=== PATIENT | male | born 1985 | race Caucasian/White ===

== ENCOUNTER 2019-10-24 16:01 | Outpatient (CLI) | payer OTHER, SELFPAY ==
--- NOTE | ~2019-10-24 | XR_ITS ---
EXAMINATION: XR chest 2V EXAM DATE: 10/24/2019 16:26 INDICATION: Atypical right-sided chest pain, mid back pain. TECHNIQUE: Frontal and lateral projections of the chest obtained and reviewed. Comparison is made to prior examination from 10/07/2017. FINDINGS: The lungs are clear. There are no pleural effusions. The cardiomediastinal silhouette is within normal limits. There is no pneumothorax suspected. The bones and soft tissues are unremarkab le. IMPRESSION: Normal chest x-ray exam. Reviewed, dictated and finalized at location B. IMPRESSION: Normal chest x-ray exam.
== END 2019-10-24 16:02 | disposition home or self-care (01) ==
PROVIDERS: PCP Family Medicine; Visit Provider Family Medicine
DX: R07.89 Other chest pain (principal)
CPT/HCPCS: 71046

== ENCOUNTER 2020-04-05 12:36 | Emergency (ER) | payer OTHER, SELFPAY ==
--- NOTE | ~2020-04-05 | XR_ITS ---
EXAMINATION: XR chest 2V DATE: 04/05/2020 13:04 INDICATION: Chest pain. TECHNIQUE: Frontal and lateral views of the chest were obtained on 3 radiographs. COMPARISON: Chest 2 views 10/24/2019 FINDINGS: A calcified left lung nodule and calcified left hilar lymph nodes are consistent with old g ranulomatous disease. No pleural effusion or pneumothorax. The heart size is normal. IMPRESSION: 1. No acute cardiopulmonary disease. Reviewed, dictated and finalized at location A. E RIDING COACH OR INSTRUCTOR
--- NOTE | 2020-04-05 12:49 | ED.CHESTPAIN ---
HPI - Chest Pain General Chief Complaint: Chest Pain Stated Complaint: chest pain Time Seen by Provider: 04/05/20 12:49 Source: patient Mode of arrival: ambulatory Limitations: no limitations History of Present Illness HPI narrative: Phu Hooper is a 35-year-old male with a prior medical history of anxiety [facility] of chest pain that he says he has had his intermittent periods of chest wall pain midsternal for the past 1 to 2 months. His he also has occasional pain across the upper part of his back and left shoulder He has no history of cardiac condition, no high blood pressure, no diagnosed high cholesterol, is not diabetic Patient smokes cigarettes up to 1 pack a day, denies use of any drugs Related Data Allergies Allergy/AdvReac Type Severity Reaction Status Date / Time Penicillins Allergy Unknown Unknown Verified 04/05/20 14:22 Review of Systems Review of Systems: Narrative: CONSTITUTIONAL: Denies fever, chills, sweats. EYES: Denies visual changes, redness, discharge. ENT: Denies rhinorrhea, congestion, sore throat, otalgia. CARDIOVASCULAR: Denies chest pain, palpitations, edema. Midsternal chest pain RESPIRATORY: Denies dyspnea, wheezing, cough GASTROINTESTINAL: Denies abdominal pain, nausea, vomiting, diarrhea. GENITOURINARY: Denies dysuria, hematuria, abnormal discharge SKIN: Denies rash or itching. NEUROLOGIC: Denies numbness, or focal weakness. PSYCHIATRIC: Denies anxiety or depression. PMFSH Past Medical History Medical History Anxiety Social History Social History (Updated 04/05/20 @ 12:52 by eTrrie Lund CNP) Smoking packs per day: 1 Smoking cigarettes per day: 20.0 Smoking status: Current every day smoker Alcohol intake: current Substance use: never Gender identity (if verbalized by the patient): Male Comments At time of signature, I agree with nursing past medical, surgical, social and family history. There is no relevant family history pertinent to the presenting complaint. Exam Narrative: Exam Narrative: GENERAL: This is a well-nourished, well-developed patient, in mild distress. Very anxious HEAD: normocephalic, atraumatic. EYES: Sclera clear/white. Vision is grossly intact. EARS: External ears normal, . Hearing grossly intact. NOSE: External nose normal without nasal discharge, nares without redness, no rhinorrhea. THROAT: Mucous membranes moist, posterior pharynx NECK: Neck supple, CARDIOVASCULAR: Tachycardia rate and rhythm without murmurs, gallops, or rubs. Complaining of chest tightness that is resolved in the 15 minutes he has been here RESPIRATORY: Clear to auscultation. Breath sounds equal bilaterally. No wheezes, rales, or rhonchi. GASTROINTESTINAL: Abdomen soft, non-tender, SKIN: warm, intact with no suspicious lesions or rash, good texture and turgor. NEURO: awake, alert, and oriented to person, place and time. There were no obvious focal neurologic abnormalities. Steady gait EXTREMITIES: Normal range of motion. BACK: Nontender without deformity Course Course Emergency Course: Patient came into the office safely was having a hard attack-complaining of midsternal chest pressure but states if he had a rated pain be 3-4. It has been intermittent for the last 1 to 2 months and has not PCP appointment 1 hour but states he cannot wait that long Patient EKG shows he is tachycardic identifies some abnormal rhythm by its interpretation seems to have an underlying normal sinus rhythm heart rate is 100 Blood sugar is 122 Chest x-ray done-no acute cardiopulmonary disease, heart size is normal Given ASA Spoke to PCP office and provider that was going to see patient-free go to ER to get blood work done including a troponin; this information relayed to patient His initial blood pressure on presentation was 158/106 but will be rechecked before discharge as patient seems to be extremely anxiou
[2020-04-05 12:54] VITALS: BP 158/106; PULSE 115; RESP 20; TEMP 36.8; O2SAT 98
[2020-04-05 12:54] LABS: Glucose Point of Care 122 (65-105)
--- NOTE | 2020-04-05 12:55 | ECG_ITS ---
Measurements Intervals [place] Rate: 100 P: 47 [place]: 126 QRS: 33 QRSD: 107 T: 42 QT: 334 QTc: 431 Interpretive Statements SINUS TACHYCARDIA INCOMPLETE RIGHT BUNDLE BRANCH BLOCK BASELINE ARTIFACT- III BORDERLINE ECG Electronically Signed On 04-05-2020 13:19:11 WELLNESS DIRECTOR by Jean Carlos Romano D.O.
[2020-04-05] MEDS: ASPIRIN 81 MG CHEWABLE TABLET 324 MG PO (13:13)
== END 2020-04-05 13:29 | disposition short-term general hospital (02) ==
PROVIDERS: Emergency Provider Nurse Practitioner; PCP Family Medicine
DX: R07.89 Other chest pain (principal); F17.210 Nicotine dependence, cigarettes, uncomplicated; I45.10 Unspecified right bundle-branch block
CPT/HCPCS: 71046; 82948; 93005; 99213; A9270; G0463

== ENCOUNTER 2020-04-05 14:10 | Emergency (ER) | payer OTHER, SELFPAY ==
--- NOTE | ~2020-04-05 | XR_ITS ---
EXAMINATION: XR chest 2V DATE: 04/05/2020 14:38 INDICATION: Chest pain. TECHNIQUE: Frontal and lateral views of the chest were obtained. COMPARISON: Chest 2 views at 13:00 FINDINGS: A calcified left lung nodule and calcified left hilar lymph nodes are consistent with old g ranulomatous disease. No pleural effusion or pneumothorax. The heart size is normal. IMPRESSION: 1. No acute cardiopulmonary disease. Reviewed, dictated and finalized at location A. RNATIONAL FREIGHT FORWARDER
--- NOTE | 2020-04-05 14:18 | ECG_ITS ---
Measurements Intervals [place] Rate: 90 P: 62 ME: 143 QRS: 50 QRSD: 90 T: 27 QT: 322 QTc: 394 Interpretive Statements SINUS RHYTHM INCOMPLETE RIGHT BUNDLE BRANCH BLOCK BASELINE ARTIFACT- I, III, AVR, AVL, AVF, V1-V6 BORDERLINE ECG Electronically Signed On 04-05-2020 15:10:23 GAS OPERATIONS ANALYST by Jean Carlos Romano D.O.
[2020-04-05 14:19] VITALS: BP 159/107; PULSE 99; RESP 12; TEMP 36.6; O2SAT 99
[2020-04-05 14:22] VITALS: PULSE 88
[2020-04-05 14:36] LABS: Basophils Absolute Auto 0.1 K/mm3 (0.0-0.1); Basophils Percent Auto 0.4 % (0.2-1.2); Eosinophils Percent Auto 0.2 % (0-4.4); Hematocrit 46.8 % (42.0-52.0); Hemoglobin 16.1 g/dL (14.0-18.0); Immature Granulocyte Absolute 0.06 K/mm3 (0.00-0.031); Immature Granulocyte Percent A 0.4 % (0-0.5); Lymphocytes Absolute Auto 2.17 K/mm3 (0.9-3.2); Lymphocytes Percent Auto 15.4 % (18.3-44.2); Mean Corpuscular HGB Conc 34.4 g/dl (32-36); Mean Corpuscular Hemoglobin 29.9 pg (26-34); Mean Corpuscular Volume 86.8 fl (80-100); Mean Platelet Volume 11.2 fl (7.4-10.4); Monocytes Absolute Auto 0.9 K/mm3 (0.1-0.6); Monocytes Percent Auto 6.2 % (2.6-8.5); Neutrophils Absolute Auto 10.9 K/mm3 (1.3-6.7); Neutrophils Percent Auto 77.4 % (45.5-73.1); Platelet Count Result 239 k/mm3 (150-375); Red Blood Count 5.39 M/mm3 (4.6-6.20); Red Cell Distribution Width 12.8 % (11.5-14.5); White Blood Count 14.1 K/mm3 (4.5-10.0)
[2020-04-05 14:46] LABS: Partial Thromboplastin Time 31.5 SECONDS (22.3-36.8)
[2020-04-05 14:50] LABS: Anion Gap 8 mmol/L (8-16); Blood Urea Nitrogen 12 mg/dL (9-20); Calcium 9.4 mg/dL (8.4-10.2); Carbon Dioxide 28 mmol/L (22-30); Chloride 103 mmol/L (98-107); Estimated CRCL calculation 107 ml/min; Estimated Glomerular Filt Rate > 60; Glucose 108 mg/dL (75-110); Potassium 3.8 mmol/L (3.4-5.0); Sodium 139 mmol/L (137-145)
[2020-04-05 15:02] LABS: Troponin I < 0.012 ng/mL (0.000-0.034)
[2020-04-05] MEDS: KETOROLAC 30 MG/ML VIAL (*BKC) IV PUSH (15:30)
[2020-04-05 15:54] VITALS: BP 152/83; PULSE 78; RESP 18; O2SAT 98
--- NOTE | 2020-04-05 16:16 | ED.CHESTPAIN ---
HPI - Chest Pain General Chief Complaint: Chest Pain Stated Complaint: chest pain Time Seen by Provider: 04/05/20 14:21 History of Present Illness HPI narrative: Patient is a 35-year-old male who presents ER with multiple complaints. Patient reports that he has been having some back and neck pain for the last 2 months. It is bilateral and occasionally goes into her shoulders. No numbness or tingling to the extremities. Unknown aggravating or alleviating factors. Patient also reports that he has been experiencing sinus congestion with productive cough in the mornings. No fevers or chills. Is associated with him having some tinnitus in his ear a couple days ago. He is also been having intermittent dizziness that is rotational in nature associated with being clammy and flushed. Has never been diagnosed with vertigo. Has not taken any motion sickness medication. Has not taking medication for sinuses. With all this he is also started developing some upper chest discomfort that is kind of an aching/tightness across the upper part of his chest near the collarbones. No exertional component. Has not tried any pain medications. Related Data Allergies Allergy/AdvReac Type Severity Reaction Status Date / Time Penicillins Allergy Unknown Unknown Verified 04/05/20 14:22 Review of Systems Review of Systems: All systems reviewed & are unremarkable except as noted in HPI and below Constitutional: Constitutional: Denies chills, Denies fever(s) and Denies weakness ENT: Reports dizziness, Reports nasal congestion and Denies sore throat Comments: Tinnitus Cardiovascular: Cardiovascular: Reports chest pain, Denies rapid heart rate and Denies radiating jaw, neck or arm pain Respiratory: Respiratory: Reports cough (Productive of green sputum), Denies dyspnea and Denies wheezing Gastrointestinal: Gastrointestinal: Denies nausea and Denies vomiting Neurologic: Denies focal weakness and Denies numbness PMFSH Past Medical History Medical History Anxiety Social History Social History (Updated 04/05/20 @ 12:52 by Terrie Lund CNP) Smoking packs per day: 1 Smoking cigarettes per day: 20.0 Smoking status: Current every day smoker Alcohol intake: current Substance use: never Gender identity (if verbalized by the patient): Male Exam Narrative: Exam Narrative: GENERAL: Well-appearing, well-nourished, and in no acute distress. HEAD: Normocephalic, atraumatic. EYES: PERRL and EOMI. ENT: TMs normal bilaterally. NECK: Supple. No midline or paraspinal muscular tenderness. CHEST: Clear to auscultation. No respiratory distress. No chest wall tenderness. HEART: Regular rate and rhythm. Normal peripheral pulses. Back: No midline or paraspinal tenderness of the T/L-spine. EXTREMITIES: Normal range of motion. No edema. SKIN: Warm, dry, no rash. NEURO: Alert and oriented x3. Course Vital Signs Vital signs: Vital Signs Temperature 97.8 F 04/05/20 14:19 Pulse Rate 99 04/05/20 14:19 Respiratory Rate 12 04/05/20 14:19 Blood Pressure 159/107 H 04/05/20 14:19 Pulse Oximetry 99 04/05/20 14:19 Temperature 97.8 F 04/05/20 14:19 Pulse Rate 78 04/05/20 15:54 Respiratory Rate 18 04/05/20 15:54 Blood Pressure 152/83 H 04/05/20 15:54 Pulse Oximetry 98 04/05/20 15:54 MDM - Chest Pain Lab Data Result diagrams: 04/05/20 14:23 04/05/20 14:23 Labs: Lab Results 04/05/20 04/05/20 04/05/20 Range/Units 14:23 14:23 14:23 WBC 14.1 H (4.5-10.0) K/mm3 RBC 5.39 (4.6-6.20) M/mm3 Hgb 16.1 (14.0-18.0) g/dL Hct 46.8 (42.0-52.0) % MCV 86.8 (80-100) fl MCH 29.9 (26-34) pg MCHC 34.4 (32-36) g/dl RDW 12.8 (11.5-14.5) % Plt Count 239 (150-375) k/mm3 MPV 11.2 H (7.4-10.4) fl Immature Gran % (Auto) 0.4 (0-0.5) % Neut % (Auto) 77.4 H (45.5-73.1) % Lymph % (Auto) 15.4
[2020-04-05 16:29] VITALS: BP 118/74; PULSE 74; RESP 14; O2SAT 98
== END 2020-04-05 16:33 | disposition home or self-care (01) ==
PROVIDERS: Emergency Provider Emergency Medicine; Family Provider Family Medicine; PCP Family Medicine
DX: R07.89 Other chest pain (principal); R42 Dizziness and giddiness; J06.9 Acute upper respiratory infection, unspecified; I45.10 Unspecified right bundle-branch block
CPT/HCPCS: 36415; 71046; 80048; 84484; 85025; 85610; 85730; 93005; 96374; 99284; J1885

== ENCOUNTER 2021-01-06 02:22 | Emergency (ER) | payer OTHER, SELFPAY ==
--- NOTE | ~2021-01-06 | XR_ITS ---
EXAMINATION: XR chest 2V EXAM DATE: 01/06/2021 02:59 INDICATION: Chest pain and dizziness. TECHNIQUE: Frontal and lateral projections of the chest obtained and reviewed. Comparison is made to prior examination from 04/05/2020. FINDINGS: The lungs are clear. There are no pleural effusions. The cardiomediastinal silhouette is within normal limits. There is no pneumothorax suspected. The bones and soft tissues are unremarkab le. IMPRESSION: No acute cardiopulmonary findings. Reviewed, dictated and finalized at location A.
[2021-01-06 02:29] VITALS: BP 155/91; PULSE 85; RESP 12; TEMP 35.9; O2SAT 100
--- NOTE | 2021-01-06 02:36 | ECG_ITS ---
Measurements Intervals [employer] Rate: 73 P: 36 [place]: 118 QRS: 65 QRSD: 113 T: 39 QT: 372 QTc: 411 Interpretive Statements SINUS RHYTHM WITH SHORT DE INTERVAL INCOMPLETE RIGHT BUNDLE BRANCH BLOCK DELAYED PRECORDIAL R/S TRANSITION BASELINE ARTIFACT- I, II, III, AVR, AVL, AVF, V1, V3-V6 BORDERLINE ECG Electronically Signed On 01-06-2021 7:37:43 CDT by Jean Carlos Romano D.O.
[2021-01-06] MEDS: SODIUM CHLORIDE 0.9% IV 1,000 ML 999 ML IV CONT (02:49)
[2021-01-06 02:56] LABS: Basophils Absolute Auto 0.1 K/mm3 (0.0-0.1); Basophils Percent Auto 0.5 % (0.2-1.2); Eosinophils Absolute Auto 0.2 K/mm3 (0-0.3); Eosinophils Percent Auto 2.4 % (0-4.4); Hematocrit 48.1 % (42.0-52.0); Hemoglobin 16.5 g/dL (14.0-18.0); Immature Granulocyte Absolute 0.03 K/mm3 (0.00-0.031); Immature Granulocyte Percent A 0.3 % (0-0.5); Lymphocytes Absolute Auto 3.93 K/mm3 (0.9-3.2); Lymphocytes Percent Auto 39.7 % (18.3-44.2); Mean Corpuscular HGB Conc 34.3 g/dl (32-36); Mean Corpuscular Hemoglobin 30.1 pg (26-34); Mean Corpuscular Volume 87.6 fl (80-100); Mean Platelet Volume 10.8 fl (7.4-10.4); Monocytes Absolute Auto 0.8 K/mm3 (0.1-0.6); Monocytes Percent Auto 8.5 % (2.6-8.5); Neutrophils Absolute Auto 4.8 K/mm3 (1.3-6.7); Neutrophils Percent Auto 48.6 % (45.5-73.1); Platelet Count Result 232 k/mm3 (150-375); Red Blood Count 5.49 M/mm3 (4.6-6.20); Red Cell Distribution Width 12.5 % (11.5-14.5); White Blood Count 9.9 K/mm3 (4.5-10.0)
[2021-01-06 03:10] LABS: Anion Gap 7 mmol/L (8-16); Blood Urea Nitrogen 11 mg/dL (9-20); Calcium 9.5 mg/dL (8.4-10.2); Carbon Dioxide 27 mmol/L (22-30); Chloride 105 mmol/L (98-107); Estimated CRCL calculation 98 ml/min; Estimated Glomerular Filt Rate > 60; Glucose 98 mg/dL (65-110); Potassium 3.8 mmol/L (3.4-5.0); Sodium 139 mmol/L (137-145)
[2021-01-06 03:19] LABS: Prothrombin Time 12.9 Seconds (11.1-14.7)
[2021-01-06 03:22] LABS: Troponin I < 0.012 ng/mL (0.000-0.034)
[2021-01-06 03:23] VITALS: BP 135/95; PULSE 72; RESP 12; O2SAT 99
--- NOTE | 2021-01-06 03:23 | ED.GENADULT ---
HPI - General Adult General Chief complaint: Shortness of Breath/Dyspnea Stated complaint: faint, lightheaded, difficulty breathing w sleep Time Seen by Provider: 01/06/21 02:29 History of Present Illness HPI narrative: Patient is a 36-year-old male who presents ER with reports of shortness of breath. Reports he went to dinner and is feeling uncomfortable and then went and sat in the car. He tried to go to sleep. At 1 point he had some tightness in his left hand and some numbness that lasted 2 minutes. Occasionally gets tightness in his chest muscles back. Patient has history of anxiety. Concerned he may be having a cardiac issue. No history of cardiac disease. No alleviating factors. Reports he was sleeping at home and woke up feeling like he could not breathe and opted to come to the ER for further evaluation. No alleviating factors. Related Data Allergies Allergy/AdvReac Type Severity Reaction Status Date / Time Penicillins Allergy Unknown Unknown Verified 01/06/21 02:40 Review of Systems Review of Systems: All systems reviewed & are unremarkable except as noted in HPI and below Constitutional: Constitutional: Denies chills, Reports fatigue, Denies fever(s) and Reports weakness Cardiovascular: Cardiovascular: Reports chest pain, Denies rapid heart rate and Denies radiating jaw, neck or arm pain Respiratory: Respiratory: Denies cough, Reports dyspnea and Denies wheezing Gastrointestinal: Gastrointestinal: Denies nausea and Denies vomiting PMFSH Past Medical History Medical History (Updated 01/06/21 @ 03:56 by Pradeep Zamarripa MD) Anxiety Surgical History Surgical History (Updated 01/06/21 @ 03:56 by Pradeep Zamarripa MD) No pertinent past surgical history Social History Social History (Updated 04/05/20 @ 12:52 by Terrie Lund CNP) Smoking packs per day: 1 Smoking cigarettes per day: 20.0 Smoking status: Current every day smoker Alcohol intake: current Substance use: never Gender identity (if verbalized by the patient): Male Exam Narrative: GENERAL: Well-appearing, well-nourished, and in no acute distress. HEAD: Normocephalic, atraumatic. EYES: PERRL and EOMI. CHEST: Clear to auscultation. No respiratory distress. HEART: Regular rate and rhythm. Normal peripheral pulses. ABDOMEN: Soft, nontender, nondistended. EXTREMITIES: Normal range of motion. No edema. SKIN: Warm, dry, no rash. NEURO: Alert and oriented x3. PSYCH: Normal mood and affect. Course Course Emergency Course: Unremarkable evaluation. Patient notes that his doctor prescribed antianxiety medication and he has recently stopped taking it. Discussed that certainly may be causing his symptoms and recommend he follow-up with his PCP. Vital Signs Vital signs: Vital Signs Temperature 96.6 F L 01/06/21 02:29 Pulse Rate 85 01/06/21 02:29 Respiratory Rate 12 01/06/21 02:29 Blood Pressure 155/91 H 01/06/21 02:29 Pulse Oximetry 100 01/06/21 02:29 Temperature 96.6 F L 01/06/21 02:29 Pulse Rate 72 01/06/21 03:23 Respiratory Rate 12 01/06/21 03:23 Blood Pressure 135/95 H 01/06/21 03:23 Pulse Oximetry 99 01/06/21 03:23 Medical Decision Making Vital Signs Vital Signs: Vital Signs Temperature 96.6 F L 01/06/21 02:29 Pulse Rate 85 01/06/21 02:29 Respiratory Rate 12 01/06/21 02:29 Blood Pressure 155/91 H 01/06/21 02:29 Pulse Oximetry 100 01/06/21 02:29 Temperature 96.6 F L 01/06/21 02:29 Pulse Rate 72 01/06/21 03:23 Respiratory Rate 12 01/06/21 03:23 Blood Pressure 135/95 H 01/06/21 03:23 Pulse Oximetry 99 01/06/21 03:23 Lab Data Result diagrams: 01/06/21 02:51 01/06/21 02:51 Labs: Lab Results 01/06/21 01/06/21 01/06/21 Range/Units 02:51 02:51 02:51 WBC 9.9 (4.5-10.0) K/mm3 RBC 5.49 (4.6-6.20) M/mm3 Hgb 16.5 (14.0-18.0) g/dL Hct 48.1 (42.0-52.0) % MCV 87.6 (80-100) fl MCH 30.1 (
[2021-01-06 04:08] VITALS: BP 134/85; PULSE 76; RESP 18; O2SAT 99
== END 2021-01-06 04:08 | disposition home or self-care (01) ==
PROVIDERS: Emergency Provider Emergency Medicine; PCP Family Medicine
DX: R06.00 Dyspnea, unspecified (principal); F17.210 Nicotine dependence, cigarettes, uncomplicated; I45.10 Unspecified right bundle-branch block; R94.31 Abnormal electrocardiogram [ECG] [EKG]
CPT/HCPCS: 36415; 71046; 80048; 84484; 85025; 85610; 85730; 93005; 96360; 99284; J7030

== ENCOUNTER 2021-04-03 13:12 | Emergency (ER) | payer OTHER, SELFPAY ==
[2021-04-03 13:32] VITALS: BP 139/87; PULSE 96; RESP 18; TEMP 36.8; O2SAT 100
--- NOTE | 2021-04-03 13:55 | ED.URI ---
HPI - URI/Sore Throat General Chief Complaint: Upper Respiratory Infection Stated Complaint: fatigue,lower left side pain Time Seen by Provider: 04/03/21 13:40 Source: patient, family, RN notes reviewed and old records reviewed Mode of arrival: ambulatory Limitations: no limitations History of Present Illness HPI Narrative: 36-year-old male who presents to [facility] with complaints of leaving work early on Thursday due to having extreme fatigue, cough and some nasal congestion. Patient reports that several of his co-workers have come down with COVID lately. He states he has been taking DayQuil and NyQuil for his cough and stuffed up nasal congestion. Patient reports that he had LLQ abdominal pain 3 times since Thursday with no nausea, vomiting or diarrhea, denies any fevers chills or sweats or any body aches no chest pain or any Shortness of breath. Patient denies any pain at present time. Has taken 2 home COVID tests over the weekend with negative results. He states that he had one Moderna vaccine 3 months ago. MD elicited complaint: cough, nasal congestion and other Pertinent past history: pneumonia and other (tobacco abuse) Onset (ago): day(s) (5 hours) Consistency: intermittent Description of mucous: clear Able to tolerate fluids by mouth: Yes Treatments prior to arrival: other (Nyquil and Dayquil) Related Data Home Medications Medication Instructions Recorded Confirmed No Home Medications 04/03/21 04/03/21 Allergies Allergy/AdvReac Type Severity Reaction Status Date / Time Penicillins Allergy Unknown Unknown Verified 04/03/21 13:42 Review of Systems Review of Systems: CONSTITUTIONAL: Denies fever, chills, or sweats. EYES: Denies visual changes, redness, or discharge. ENT: Positive rhinorrhea, congestion,no sore throat, or otalgia. CARDIOVASCULAR: Denies chest pain, palpitations, or edema. RESPIRATORY: Positive cough no dyspnea. GASTROINTESTINAL: Denies abdominal pain, nausea, vomiting, or diarrhea. GENITOURINARY: Denies dysuria or hematuria. SKIN: Denies rash or itching. MUSCULOSKELETAL: Denies back pain, joint pain, or myalgia. NEUROLOGIC: Denies headache, numbness, or weakness. PSYCHIATRIC: Positive for anxiety or depression. All systems reviewed & are unremarkable except as noted in HPI and below [facility] Past Medical History Medical History (Updated 04/03/21 @ 16:13 by Ngoc Heaton NP) Anxiety Pneumonia Surgical History Surgical History (Updated 04/03/21 @ 16:14 by Ngoc Heaton NP) History of tonsillectomy Social History Social History Smoking packs per day: 1 Smoking cigarettes per day: 20.0 Smoking status: Current every day smoker Alcohol intake: current Substance use: never Gender identity (if verbalized by the patient): Male Comments At time of signature, agree with nursing past medical, surgical, social and family history. There is no relevant family history pertinent to the presenting complaint Exam Narrative: GENERAL: Well-appearing, well-nourished, and in no acute distress. HEAD: Normocephalic, atraumatic. EYES: PERRLA and EOMI. ENT: Nares red with clear rhinorrhea no epistaxis. Mucous membranes moist.TM's normal with good light reflex, throat with mild redness, no lesions or exudates no tonsils present NECK: Supple.no lymphadenopathy CHEST: Clear to auscultation. No respiratory distress.SAO2 100% on room air HEART: Regular rate and rhythm. No murmur heard. Normal peripheral pulses. ABDOMEN: Soft, nontender to palpation, nondistended, normal active bowel sounds. EXTREMITIES: Normal range of motion. No edema. SKIN: Warm, dry, no rash. NEURO: No focal deficits. Alert and oriented x3. Course Course Level of Care: Express Care Visit Vital Signs Vital signs: Vital Signs Temperature 36.8 C 04/03/21 13:32 Pulse Rate 96 04/03/21 13:32 Respiratory Rate 18 04/03/21 13:32 Blood Pressure 139/87 04/03/21 13:
--- NOTE | 2021-04-03 16:11 | ED.URI ---
HPI - URI/Sore Throat General Chief Complaint: Upper Respiratory Infection Stated Complaint: fatigue,lower left side pain Source: patient, family, RN notes reviewed and old records reviewed Mode of arrival: ambulatory Limitations: no limitations Related Data Home Medications Medication Instructions Recorded Confirmed No Home Medications 04/03/21 04/03/21 Allergies Allergy/AdvReac Type Severity Reaction Status Date / Time Penicillins Allergy Unknown Unknown Verified 04/03/21 13:42 [facility] Past Medical History Medical History Anxiety Surgical History Surgical History No pertinent past surgical history Social History Social History Smoking packs per day: 1 Smoking cigarettes per day: 20.0 Smoking status: Current every day smoker Alcohol intake: current Substance use: never Gender identity (if verbalized by the patient): Male Course Vital Signs Vital signs: Vital Signs Temperature 36.8 C 04/03/21 13:32 Pulse Rate 96 04/03/21 13:32 Respiratory Rate 18 04/03/21 13:32 Blood Pressure 139/87 04/03/21 13:32 Pulse Oximetry 100 04/03/21 13:32 Temperature 36.8 C 04/03/21 13:32 Pulse Rate 96 04/03/21 13:32 Respiratory Rate 18 04/03/21 13:32 Blood Pressure 139/87 04/03/21 13:32 Pulse Oximetry 100 04/03/21 13:32 MDM - URI/Sore Throat Lab Data Labs: Lab Results 04/03/21 Range/Units 13:40 POC SARS CoV-2 Ag Negative (Negative) Discharge Plan Discharge Clinical Impression: Upper respiratory infection Qualifiers: URI type: unspecified URI Qualified Code(s): J06.9 - Acute upper respiratory infection, unspecified Patient Disposition: Home, Self-Care Condition: Stable Instructions: Antibiotic Form Additional Instructions: Increase fluids especially juices and water [id number] cough and cold medicine of your choice for your symptoms Tylenol ibuprofen for any fever pain Zyrtec Claritin or Mial daily include Sudafed as decongestant heat to the face 20-30 minutes 4-6 times a day for pain Salt water gargles, throat lozenges or throat sprays as desired If your symptoms persist, change or worsen significantly before you can contact your personal physician then please, without delay, go to the emergency department for further evaluation. Follow-up with PCP in 7-10 days or sooner if needed Follow up with PCP soon in regards to your blood pressure which is elevated above threshold for referral. Blood pressure above 120/80 may indicate pre-hypertension. Prescriptions: No Action No Home Medications RF: 0 Follow-up/Referrals: Vic Clay MD [Primary Care Provider] - Stand Alone Forms: Work/School Release IP Time of Disposition: 14:11 Quality [place] Coma Scale Eyes: Open Verbal: Oriented and Alert Motor: Follows Commands [place] Coma Total Score: 15
== END 2021-04-03 14:15 | disposition home or self-care (01) ==
PROVIDERS: Emergency Provider Registered Nurse; PCP Family Medicine
DX: J06.9 Acute upper respiratory infection, unspecified (principal); Z20.822 Contact with and (suspected) exposure to COVID-19; F17.210 Nicotine dependence, cigarettes, uncomplicated
CPT/HCPCS: 87426; 99213; C9803; G0463

== ENCOUNTER 2021-12-26 00:14 | Emergency (ER) | payer OTHER, SELFPAY ==
--- NOTE | ~2021-12-26 | XR_ITS ---
EXAMINATION: XR chest 2V DATE: 12/26/2021 04:39 INDICATION: Right-sided chest pain TECHNIQUE: PA and lateral views of the chest were obtained. COMPARISON: Chest radiograph dated 01/06/21 FINDINGS: The lungs remain clear with no focal airspace opacities, pulmonary edema, pleural effusion or pneumot horax. The cardiomediastinal silhouette is normal. Visualized bones and soft tissues are unremarkable . IMPRESSION: 1. Normal chest radiograph. Reviewed, dictated and finalized at location A. IMPRESSION: 1. Normal chest radiograph.
--- NOTE | ~2021-12-26 | CT_ITS ---
EXAMINATION: CT abdomen pelvis w con DATE: 12/26/2021 04:45 INDICATION: Right upper quadrant abdominal pain TECHNIQUE: Computed tomography (CT) of the abdomen and pelvis was performed with 100 mL Omnipaque-350 intravenous contrast. Automated exposure control and iterative reconstruction technique were employe d. The dose-length product was 351.58 mGy-cm. COMPARISON: None FINDINGS: Mild atelectasis at the medial aspect of the lingula and right middle lobe. Heart size is normal. No pericardial or pleural effusion. Subcentimeter low-attenuation likely cyst in the liver and a couple in the right kidney which are too small to definitively characterize. Gallbladder, spleen, pancreas a nd bilateral adrenal glands are normal. Small focus of cortical scarring at the left kidney. Bowels i ncluding a retrocecal appendix are normal. Bladder is normal. No free intraperitoneal gas or fluid. N o pathologically enlarged abdominal or pelvic lymphadenopathy. Bones are unremarkable. IMPRESSION: 1. No acute intra-abdominal/pelvic process. Reviewed, dictated and finalized at location A.
[2021-12-26 00:35] VITALS: BP 150/100; PULSE 87; RESP 18; TEMP 36.6; O2SAT 100
[2021-12-26 03:21] LABS: Basophils Absolute Auto 0.1 K/mm3 (0.0-0.1); Basophils Percent Auto 0.7 % (0.2-1.2); Eosinophils Absolute Auto 0.1 K/mm3 (0-0.3); Eosinophils Percent Auto 1.4 % (0-4.4); Immature Granulocyte Absolute 0.02 K/mm3 (0.00-0.031); Immature Granulocyte Percent A 0.2 % (0-0.5); Lymphocytes Absolute Auto 3.01 K/mm3 (0.9-3.2); Lymphocytes Percent Auto 29.4 % (18.3-44.2); Mean Corpuscular Hemoglobin 29.7 pg (26-34); Mean Corpuscular Volume 87.2 fl (80-100); Mean Platelet Volume 11.1 fl (7.4-10.4); Monocytes Absolute Auto 0.9 K/mm3 (0.1-0.6); Monocytes Percent Auto 8.7 % (2.6-8.5); Neutrophils Absolute Auto 6.1 K/mm3 (1.3-6.7); Neutrophils Percent Auto 59.6 % (45.5-73.1); Platelet Count Result 259 k/mm3 (150-375); Red Blood Count 5.39 M/mm3 (4.6-6.20); Red Cell Distribution Width 12.7 % (11.5-14.5); White Blood Count 10.2 K/mm3 (4.5-10.0)
[2021-12-26 03:32] LABS: Alanine Aminotransferase 26 U/L (6-50); Alkaline Phosphatase 73 U/L (38-126); Anion Gap 14 mmol/L (8-16); Aspartate Amino Transferase 27 U/L (17-59); Bilirubin,Total 0.5 mg/dL (0.2-1.3); Blood Urea Nitrogen 13 mg/dL (9-20); Calcium 9.6 mg/dL (8.4-10.2); Carbon Dioxide 28 mmol/L (22-30); Chloride 100 mmol/L (98-107); Estimated CRCL calculation 106 ml/min; Estimated Glomerular Filt Rate > 60; Glucose 110 mg/dL (65-110); Lipase 109 U/L (23-300); Potassium 4.4 mmol/L (3.4-5.0); Sodium 142 mmol/L (137-145)
[2021-12-26 03:47] VITALS: BP 178/106; PULSE 86; RESP 18; O2SAT 100
[2021-12-26 03:49] VITALS: O2SAT 100
--- NOTE | 2021-12-26 04:08 | ED.ABDPAIN ---
HPI - Abdominal Pain General Chief Complaint: Abdominal Pain Stated Complaint: RUQ pain and dyspnea Time Seen by Provider: 12/26/21 03:44 History of Present Illness HPI narrative: This is a 36-year-old male who denies past medical history, presenting to the emergency department with right lower chest pain for the past day. He describes the pain as dull, 5-6 out of 10, aggravated by cough, sneezing or direct palpation of the right abdomen and right lower chest. He denies any recent trauma, fevers, chills, other abdominal pain or vomiting. He has never felt a pain like this before. He states it does not radiate. Related Data Allergies Allergy/AdvReac Type Severity Reaction Status Date / Time Penicillins Allergy Unknown Unknown Verified 04/03/21 13:42 Review of Systems Review of Systems: CONSTITUTIONAL: Denies fever, chills, or sweats. EYES: Denies visual changes, redness, or discharge. ENT: Denies rhinorrhea, congestion, sore throat, or otalgia. CARDIOVASCULAR: Right side chest pain Denies palpitations, or edema. RESPIRATORY: Denies cough or dyspnea. GASTROINTESTINAL: denies nausea, vomiting, or diarrhea. GENITOURINARY: Denies dysuria or hematuria. SKIN: Denies rash or itching. MUSCULOSKELETAL: Denies back pain, joint pain, or myalgia. NEUROLOGIC: Denies headache, numbness, dizziness, or weakness. PSYCHIATRIC: Denies anxiety or depression. [facility] Past Medical History Medical History Anxiety Pneumonia Surgical History Surgical History History of tonsillectomy Social History Social History Smoking packs per day: 1 Smoking cigarettes per day: 20.0 Smoking status: Current every day smoker Alcohol intake: current Substance use: never Gender identity (if verbalized by the patient): Male Exam Narrative: GENERAL: Well-appearing, well-nourished, and in no acute distress. HEAD: Normocephalic, atraumatic. EYES: PERRLA and EOMI. ENT: Nares clear, no rhinorrhea or epistaxis. Mucous membranes moist. Oropharynx without tonsillar hypertrophy exudate or other lesions. Bilateral TMs pearly hall nonbulging NECK: Supple. No adenopathy or masses. No carotid bruits or JVD CHEST: Tender to palpation over the right chest wall at approximately fifth and sixth rib space, no overlying skin changes or crepitus clear to auscultation. No respiratory distress. No wheezes rales or rhonchi HEART: Regular rate and rhythm. No murmur heard. Normal peripheral pulses. ABDOMEN: Soft, nontender, nondistended, normal active bowel sounds. EXTREMITIES: Normal range of motion. No edema. SKIN: Warm, dry, no rash. NEURO: No focal deficits. Alert and oriented x3. PSYCH: Normal mood and affect. Course Course Emergency Course: 07:44 - CT is not concerning for acute intra-abdominal process. Chest x-ray unremarkable. Labs demonstrate mild white blood cell count elevation but otherwise unremarkable. Will discharge with Tylenol and lidocaine patches. Discussed return and emergent precautions including signs/symptoms of intractable vomiting, acute abdomen and respiratory distress. The patient voiced understanding is comfortable with the plan. All questions answered to his satisfaction. Vital Signs Vital signs: Vital Signs Temperature 97.9 F 12/26/21 00:35 Pulse Rate 87 12/26/21 00:35 Respiratory Rate 18 12/26/21 00:35 Blood Pressure 150/100 H 12/26/21 00:35 Pulse Oximetry 100 12/26/21 00:35 Oxygen Delivery Room Air 12/26/21 00:35 Temperature 97.9 F 12/26/21 00:35 Pulse Rate 109 H 12/26/21 06:07 Respiratory Rate 18 12/26/21 06:07 Blood Pressure 156/98 H 12/26/21 06:07 Pulse Oximetry 98 12/26/21 06:07 Oxygen Delivery Room Air 12/26/21 03:49 MDM - Abdominal Pain MDM Narrative Medical decision making narrative: Plan: Labs, imaging
[2021-12-26 05:17] LABS: Add Urine Microscopic? NO; Appearance Urine Clear (Clear); Bilirubin Urine Negative (Negative); Blood Urine Negative (Negative); Color Urine Straw (Yellow); Glucose Urine UA Negative (Negative); Ketones Urine Negative (Negative); Leukocyte Esterase Ur Negative LEU/UL (Negative); Nitrate Urine Negative (Negative); Protein Urine Negative (Negative); Urobilinogen Urine Negative mg/dL (<2.0)
[2021-12-26 05:20] LABS: Specific Grav Ur 1.041 (1.001-1.035)
[2021-12-26 06:07] VITALS: BP 156/98; PULSE 109; RESP 18; O2SAT 98
[2021-12-26] MEDS: LIDOCAINE 5% PATCH 1 PATCH TRANSDERM (07:57)
== END 2021-12-26 08:03 | disposition home or self-care (01) ==
PROVIDERS: Emergency Provider Preventive Medicine Aerospace Medicine; PCP Family Medicine
DX: M94.0 Chondrocostal junction syndrome [Tietze] (principal); Z87.01 Personal history of pneumonia (recurrent); F17.210 Nicotine dependence, cigarettes, uncomplicated
CPT/HCPCS: 36415; 71046; 74177; 80053; 81003; 83690; 85025; 99284; A9270; Q9967

== ENCOUNTER 2022-04-02 14:10 | Emergency (ER) | payer OTHER, SELFPAY ==
[2022-04-02 14:20] VITALS: BP 145/70; PULSE 79; RESP 18; TEMP 36.3; O2SAT 100
--- NOTE | 2022-04-02 14:26 | ED.URI ---
HPI - URI/Sore Throat General Chief Complaint: Upper Respiratory Infection Stated Complaint: sorethroat,rt ear discomfort Time Seen by Provider: 04/02/22 14:26 Source: patient Mode of arrival: ambulatory Limitations: no limitations History of Present Illness HPI Narrative: 37-year-old male presents with complaint of sore throat, headaches, body aches, fatigue starting yesterday. Reports recent exposure to strep By his daughter. Patient states I just feel like I am getting sick . Denies nausea vomiting diarrhea. Afebrile. No chest pain or shortness breath. All systems reviewed and negative except as noted above. Related Data Allergies Allergy/AdvReac Type Severity Reaction Status Date / Time Penicillins Allergy Unknown Unknown Verified 04/03/21 13:42 Review of Systems Review of Systems: CONSTITUTIONAL: Denies fever, chills, or sweats. reports fatigue EYES: Denies visual changes, redness, or discharge. ENT: Denies rhinorrhea, congestion . Reports sore throat. Denies otalgia. CARDIOVASCULAR: Denies chest pain, palpitations, or edema. RESPIRATORY: Denies cough or dyspnea. GASTROINTESTINAL: Denies abdominal pain, nausea, vomiting, or diarrhea. GENITOURINARY: Denies dysuria or hematuria. SKIN: Denies rash or itching. MUSCULOSKELETAL: Denies back pain, joint pain. Reports myalgia. NEUROLOGIC: Denies headache, numbness, or weakness. PSYCHIATRIC: Denies anxiety or depression. All other systems reviewed are negative, except as documented in HPI. PMFSH Past Medical History Medical History Anxiety Pneumonia Surgical History Surgical History History of tonsillectomy Social History Social History Smoking packs per day: 1 Smoking cigarettes per day: 20.0 Smoking status: Current every day smoker Alcohol intake: current Substance use: never Gender identity (if verbalized by the patient): Male Comments At time of signature, agree with nursing past medical, surgical, social and family history. There is no relevant family history pertinent to the presenting complaint. Exam Narrative: GENERAL: This is a well-nourished, well-developed patient, in no apparent distress. HEAD: normocephalic, atraumatic. EYES: PERRL. Sclera clear/white. Vision is grossly intact. EARS: External ears normal, auditory canals clear and without drainage, TMs normal without perforation. Hearing grossly intact. NOSE: External nose normal with no obvious nasal discharge, nares without redness, no rhinorrhea. THROAT: Mucous membranes moist, erythema to posterior pharynx without exudates or swelling. NECK: Neck supple, non-tender without lymphadenopathy, masses or thyromegaly. CARDIOVASCULAR: Regular rate and rhythm without murmurs, gallops, or rubs. RESPIRATORY: Clear to auscultation. Breath sounds equal bilaterally. No wheezes, rales, or rhonchi. SKIN: warm, Dry, intact with no suspicious lesions or rash, good texture and turgor. NEURO: awake, alert, and oriented to person, place and time. There were no obvious focal neurologic abnormalities. EXTREMITIES: No joint tenderness, effusion, or edema noted. Course Course Level of Care: Express Care Visit Vital Signs Vital signs: Vital Signs Temperature 36.3 C L 04/02/22 14:20 Pulse Rate 79 04/02/22 14:20 Respiratory Rate 18 04/02/22 14:20 Blood Pressure 145/70 H 04/02/22 14:20 Pulse Oximetry 100 04/02/22 14:20 Oxygen Delivery Room Air 04/02/22 14:20 Temperature 36.3 C L 04/02/22 14:20 Pulse Rate 79 04/02/22 14:20 Respiratory Rate 18 04/02/22 14:20 Blood Pressure 145/70 H 04/02/22 14:20 Pulse Oximetry 100 04/02/22 14:20 Oxygen Delivery Room Air 04/02/22 14:20 Reviewed MDM - URI/Sore Throat MDM Narrative Medical decision making narrative: Patient is aware of di
== END 2022-04-02 14:47 | disposition home or self-care (01) ==
PROVIDERS: Emergency Provider Nurse Practitioner Family; PCP Family Medicine
DX: J02.9 Acute pharyngitis, unspecified (principal); Z20.818 Contact with and (suspected) exposure to other bacterial communicable diseases; F17.210 Nicotine dependence, cigarettes, uncomplicated
CPT/HCPCS: 87081; 87880; 99213; G0463

== ENCOUNTER 2023-03-08 11:18 | Emergency (ER) | payer OTHER, SELFPAY ==
[2023-03-08 12:35] VITALS: BP 124/79; PULSE 89; RESP 18; TEMP 36.7; O2SAT 99
--- NOTE | 2023-03-08 12:58 | ED.GENADULT ---
HPI - General Adult General Chief complaint: Upper Respiratory Infection Stated complaint: Headache,Body Aches,Nausea Source: patient Mode of arrival: ambulatory Limitations: no limitations History of Present Illness HPI narrative: Patient presents for evaluation of sick symptoms for last 3-4 days. The day prior to symptom onset one of his coworkers mentioned that he was feeling ill. That same co-worker came to work the following day coughing most of the day. Patient went home that evening and noted some generalized body aches, fever, nausea and cough which is nonproductive. He denies any chills, vomiting, diarrhea, shortness of breath. He took some Tylenol for symptoms. Related Data Allergies Allergy/AdvReac Type Severity Reaction Status Date / Time Penicillins AdvReac Mild Rash Verified 03/08/23 12:21 Review of Systems Review of Systems: CONSTITUTIONAL: Reports fever. Denies chills, or sweats. EYES: Denies visual changes, redness, or discharge. ENT: Denies rhinorrhea, congestion, sore throat, or otalgia. CARDIOVASCULAR: Denies chest pain, palpitations, or edema. RESPIRATORY: reports nonproductive cough. Denies shortness of breath. GASTROINTESTINAL: Reports nausea. Denies abdominal pain, vomiting, or diarrhea. GENITOURINARY: Denies dysuria or hematuria. SKIN: Denies rash or itching. MUSCULOSKELETAL: Reports generalized body aches NEUROLOGIC: Denies headache, numbness, dizziness, or weakness. PSYCHIATRIC: Denies anxiety or depression. [facility] Past Medical History Medical History Anxiety Essential (primary) hypertension Surgical History Surgical History History of tonsillectomy Family History Family History Father No problems noted. Mother No problems noted. Social History Social History Smoking packs per day: 1 Smoking cigarettes per day: 20.0 Years smoked: 18 Smoking pack-years: 18.00 Smoking status: Former smoker Tobacco type: cigarettes Smoking end date: 07/07/21 Alcohol intake: current Substance use: never Substance use type: does not use Lack of Transportation: No Lack of Food: Never True Current Housing: I Have Housing Concerned About Future Housing: No Difficulty Paying Gas/Electric Bills: No Difficulty Paying for Meds: No Currently Unemployed: No Education: High School Diploma/GED Difficulty w/ Childcare or Family Care: No Living arrangements: with family Occupation/Education: occupation Gender identity (if verbalized by the patient): Male Sexual Orientation (if Verbalized by the Patient): Straight or Heterosexual Spiritual care concerns: No Exam Narrative: GENERAL: Well-appearing, well-nourished, and in no acute distress. HEAD: Normocephalic, atraumatic. EYES: PERRLA and EOMI. ENT: Nares clear, no rhinorrhea or epistaxis. Mucous membranes moist. Oropharynx without tonsillar hypertrophy exudate or other lesions. Bilateral TMs pearly hall nonbulging NECK: Supple. No adenopathy or masses. No carotid bruits or JVD CHEST: Clear to auscultation. No respiratory distress. No wheezes rales or rhonchi HEART: Regular rate and rhythm. No murmur heard. Normal peripheral pulses. ABDOMEN: Soft, nontender, nondistended, normal active bowel sounds. EXTREMITIES: Normal range of motion. No edema. SKIN: Warm, dry, no rash. NEURO: No focal deficits. Alert and oriented x3. PSYCH: Normal mood and affect. Course Course Emergency Course: This is a 38-year-old male who presented for evaluation of sick symptoms. COVID, strep, influenza were all negative. Exam is consistent with acute viral syndrome. I did offer to provide him prescriptions for and antitussive and antiemetic. He declined. Wi
== END 2023-03-08 13:00 | disposition home or self-care (01) ==
PROVIDERS: Emergency Provider Nurse Practitioner; PCP Family Medicine
DX: B34.9 Viral infection, unspecified (principal); I10 Essential (primary) hypertension; Z87.891 Personal history of nicotine dependence; Z20.822 Contact with and (suspected) exposure to COVID-19
CPT/HCPCS: 87081; 87426; 87804; 87880; 99213; C9803; G0463

== ENCOUNTER 2023-07-21 11:35 | Outpatient (CLI) | payer OTHER, SELFPAY ==
--- NOTE | ~2023-07-21 | XR_ITS ---
EXAM: XR cervical spine min 6V DATE: 07/21/2023 11:58 HISTORY: M54.2 - Cervicalgia . COMPARISON: 12/09/2013. FINDINGS: Craniocervical association and atlantoaxial joint are aligned. No prevertebral soft tissue swelling. 2 mm anterolisthesis at C3-4 and C4-5, which worsen slightly at both levels in flexion and reduces at both levels in extension. 1-2 mm retrolisthesis at C5-6, unchanged in flexion or extensio n. Mild cervical lordosis reversal centered at C5. Vertebral body heights are maintained. Mild disc s pace narrowing at C2-3 and C3-4 through C6-7. Mild multilevel facet arthropathy and uncovertebral owen nt hypertrophy. No significant neural foraminal narrowing. IMPRESSION: Grade 1 dynamic anterolistheses at C3-4 and C4-5. Stable grade 1 retrolisthesis at C5-6. Mild degenerative disc disease at C2-3 and C3-4 through C6-7. Reviewed, dictated and finalized at location K. IMPRESSION: Grade 1 dynamic anterolistheses at C3-4 and C4-5. Stable grade 1 re trolisthesis at C5-6. Mild degenerative disc disease at C2-3 and C3-4 through C 6-7.
== END 2023-07-21 11:36 ==
PROVIDERS: PCP Family Medicine; Visit Provider Family Medicine
DX: M50.323 Other cervical disc degeneration at C6-C7 level (principal)
CPT/HCPCS: 72052

== ENCOUNTER 2024-06-20 19:19 | Emergency (ER) | payer OTHER, SELFPAY ==
--- OUTSIDE RECORDS SUMMARY | 2024-06-20 19:22 | XMS_ITS | Encounter Summary ---
Author Organization [employer] Address 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
--- OUTSIDE RECORDS SUMMARY | 2024-06-20 19:22 | XMS_ITS | Clinical Summary ---
Author Organization [facility] al Address [address] [place] [address] Care Team Providers Care Product Marketing Manager Name Role Phone Vic Clay MD Primary Care Provider [phone] Allergies Active Allergy Reactions Criticality Noted Date Comments Penicillins Hives Medium 01/08/2018 Medications trimethoprim-po lymyxin B (POLYTRIM) ophthalmic solution Administer 1 drop into the right eye 4 (four) times a day. 10 mL 8 Active erythromycin (ILOTYCIN) ophthalmic ointment Place 1/2 inch ribbon in right eye three times a day. 3.5 g 8 Active artificial tears (ISOPTO TEARS) 0.5 % ophthalmic solution Administer 2 drops into the right eye every 3 (three) hours as needed (dryness). 1 Bottle 8 Active cyclopentolate (CYCLOGYL) 1 % ophthalmic solution Administer 1 drop into the right eye 3 (three) times a day. 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 Very mild epi irregularity without epi defect or infiltrate. Possible h/o RCE following corneal abrasion 1 year ago. Will Rx samuel 128 gtts tid and samuel grant qhs OD. Commotio retinae, right, subsequent encounter Overview (01/25/2018): Inferior Assessment & Plan (01/25/2018 10:28 AM CODING CLERKS SUPERVISOR): Resolved. - Strict return precaution reviewed - Follow up if worsening vision or concerning symptoms. Abrasion of right cornea 01/10/2018 Assessment & Plan (01/25/2018 10:29 AM CODING CLERKS SUPERVISOR): Completely healed. Still had blurry vision, BCVA 20/20 on today's refraction. - Reassured the patient - Recommend artificial tears, qid, OD, prn - Follow up as needed Assessment & Plan (01/12/2018 10:51 AM CODING CLERKS SUPERVISOR): Appears healed, no e/o infection or scarring C/w polytrim TID for 1 week course, emycin grant PRN discomfort Can d/c cyclogyl as quiet today F/u 1 week for dilated exam to f/u commotio, sooner if any pain/decreased vision Assessment & Plan (01/10/2018 8:03 AM CODING CLERKS SUPERVISOR): Good healing process, no infiltrate - Con't polytrim gtt, OD, TID - Con't Erythromycin grant, OD, TID - Con't cyclogyl 1%, 2-3 times/d, OD - AT, OD, qid, prn - Return precautions reviewed - RTC on 01/13 to reassess. Iritis, traumatic 01/10/2018 Assessment & Plan (01/25/2018 10:24 AM CODING CLERKS SUPERVISOR): Resolved. Assessment & Plan (01/10/2018 8:04 AM CODING CLERKS SUPERVISOR): Feeling better about pain and photophobia - Con't cyclogyl 1%, 2-3 times/d, OD Social History Tobacco Use Types Packs/Day Years Used Date Smoking Tobacco: Every Day Smokeless Tobacco: Never Personal Safety Answer Date Recorded Getting School Help Needed Not on file 05/21 Sex and Gender Information Value Date Recorded Sex Assigned at Not on file Legal Sex Male 2:02 AM CODING CLERKS SUPERVISOR Gender Identity Not on file Sexual Orientation Not on file Obstetrics History Last Filed Vital Signs Vital Sign Reading Time Taken Comments Blood Pressure 118/78 01/09/2018 1:00 AM CDT Pulse 68 01/09/2018 1:00 AM CDT Temperature 36.3 C (97.3 F) 01/08/2018 6:03 PM CDT Respiratory Rate 18 01/08/2018 6:03 PM CDT Oxygen Saturation 97% 01/09/2018 1:00 AM CDT Inhaled Oxygen Concentration - - Weight 63.5 kg (140 lb) 01/08/2018 6:03 PM CDT Height 175.3 cm (5' 9 ) 01/08/2018 6:03 PM CDT Body Mass Index 20.67 01/08/2018 6:03 PM CDT Plan of Treatment Not on file Insurance [facility] [employer] GENERIC Care Teams Product Marketing Manager Relationship Specialty Start Date End Date Vic Clay MD [address] [place] [address] [id number] PCP - General 01/08/18
--- OUTSIDE RECORDS SUMMARY | 2024-06-20 19:22 | XMS_ITS | Clinical Summary ---
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
--- OUTSIDE RECORDS SUMMARY | 2024-06-20 19:22 | XMS_ITS | Clinical Summary ---
Author Organization [facility] Address [address] [place] [id number] Care Team Providers Care Machine Tank Operator Name Role Phone Vic Clay MD Primary Care Provider [phone] Allergies Active Allergy Reactions Criticality Noted Date Comments Penicillins Unknown 06/30/2021 Medications No known medications Social History Tobacco Use Types Packs/Day Years Used Date Smoking Tobacco: Every Day Cigarettes Smokeless Tobacco: Never Alcohol Use Standard Drinks/Week Comments Yes 0 (1 standard drink = 0.6 oz pur e alcohol) Occassional Sex and Gender Information Value Date Recorded Sex Assigned at Not on file Legal Sex Male 5:56 PM CDT Gender Identity Not on file Sexual Orientation Not on file Last Filed Vital Signs Vital Sign Reading Time Taken Comments Blood Pressure 146/90 06/30/2021 10:19 PM CDT Pulse 81 06/30/2021 10:19 PM CDT Temperature 36.6 C (97.8 F) 06/30/2021 8:46 PM CDT Respiratory Rate 17 06/30/2021 10:19 PM CDT Oxygen Saturation 98% 06/30/2021 10:19 PM CDT Inhaled Oxygen Concentration - - Weight 72.6 kg (160 lb) 06/30/2021 8:46 PM CDT Height 172.7 cm (5' 8 ) 06/30/2021 8:46 PM CDT Body Mass Index 24.33 06/30/2021 8:46 PM CDT Plan of Treatment Health Maintenance Due Date Last Done Comments Annual Physical 01/06/1987 Pneumococcal Vaccine: Pediatrics (0 to 5 Years) and At-Risk Patients (6 to 49 Years) (1 of 2 - PCV) 01/06/1990 Hepatitis C 01/06/2002 DTaP, Tdap and Td Vaccines ( 1 - Tdap) 01/06/2003 Hepatitis B Vaccines (1 of 3 - 19+ 3-dose series) 01/06/2003 COVID-19 Vaccine (3 - 2023-2 5 season) 2023 04/05/2021, 10/19/2020 HPV Vaccines Aged Out No longer eligi ble based on patient's age to complete this topic Meningococcal B Vaccine Aged Out No l onger eligible based on patient's age to complete this topic Meningococcal Vaccine Aged Out No deysi perico eligible based on patient's age to complete this topic RSV Immunizations Under 20 Months Aged Out No longer eligible b ased on patient's age to complete this topic Insurance [facility] Care Teams Machine Tank Operator Relationship Specialty Start Date End Date Vic Clay MD [address] [place] [id number] PCP - General FAMILY PRACTICE 06/30/21
--- OUTSIDE RECORDS SUMMARY | 2024-06-20 19:22 | XMS_ITS | Referral Summary ---
Author Organization [facility] al Address [address] [place] [address] Care Team Providers Care Packing Clerk Name Role Phone Vic Clay MD Primary Care Provider [phone] Allergies Active Allergy Reactions Criticality Noted Date [...] Inferior Assessment & Plan (01/25/2018 10:28 AM BRAND EXECUTIVE): Resolved. - Strict return precaution reviewed - Follow up if worsening vision or concerning symptoms. Abrasion of right cornea 01/10/2018 Assessment & Plan (01/25/2018 10:29 AM BRAND EXECUTIVE): Completely healed. Still had blurry vision, BCVA 20/20 on today's refraction. - Reassured the patient - Recommend artificial tears, qid, OD, prn - Follow up as needed Assessment & Plan (01/12/2018 10:51 AM BRAND EXECUTIVE): Appears healed, no e/o infection or scarring C/w polytrim TID for 1 week course, emycin grant PRN discomfort Can d/c cyclogyl as quiet today F/u 1 week for dilated exam to f/u commotio, sooner if any pain/decreased vision Assessment & Plan (01/10/2018 8:03 AM BRAND EXECUTIVE): Good healing process, no infiltrate - Con't polytrim gtt, OD, TID - Con't Erythromycin grant, OD, TID - Con't cyclogyl 1%, 2-3 times/d, OD - AT, OD, qid, prn - Return precautions reviewed - RTC on 01/13 to reassess. Iritis, traumatic 01/10/2018 Assessment & Plan (01/25/2018 10:24 AM BRAND EXECUTIVE): Resolved. Assessment & Plan (01/10/2018 8:04 AM BRAND EXECUTIVE): Feeling better about pain and photophobia - Con't cyclogyl 1%, 2-3 times/d, OD Social History Tobacco Use Types Packs/Day Years Used Date Smoking Tobacco: Every Day Smokeless Tobacco: Never Personal Safety Answer Date Recorded Getting School Help Needed Not on file 05/21 Sex and Gender Information Value Date Recorded Sex Assigned at Not on file Legal Sex Male 2:02 AM BRAND EXECUTIVE Gender Identity Not on file Sexual Orientation [...] Plan of Treatment Not on file Insurance [facility] CHOICE PLUS WORKERS COMPENSATION GENERIC FLAKITA GREEN [id number] Care Teams Packing Clerk Relationship Specialty Start Date End Date Vic Clay MD [address] [place] [address] [place] FU [id number] PCP - General 01/08/18
--- OUTSIDE RECORDS SUMMARY | 2024-06-20 19:22 | XMS_ITS | Encounter Summary ---
Author Organization [facility] Address [address] [facility] [facility] [address] [place] [address] Phone Care Team Providers Care Waiter/Waitress Take Out Name Role Phone Vic Clay MD Primary Care Provider [phone] Encounter Details Date Type Department Care Team (Late st Contact Info) Description 01/09/2018 Ophth Exam [facility] Ophthalmology [address] [place] [address] 1st [place] [id number] Nesha Thomas MD PhD [address] [facility] [address] [place], [place] [id number] Social History Tobacco Use Types Packs/Day Years Used Date Smoking Tobacco: Every Day Smokeless Tobacco: Never Sex and Gender Information Value Date Recorded Sex Assigned at Not on file Legal Sex Male 2:02 AM TRANSFER MAN Gender Identity Not on file Sexual Orientation Not on file documented as of this encounter Plan of Treatment Not on file documented as of this encounter Visit Diagnoses Not on filedocumented in this encounter Eye Exam Visual Acuity (Near card) Right eye Left eye Near sc 20/100 -> 20/40 PH 20/20 Tonometry (Tonopen, 12:00 AM) Right eye Left eye Pressure 19 17 Pupils Pupils Dark Light Shape React APD Right eye PERRL 4 2 Round Brisk None Left eye PERRL 4 2 Round Brisk None Visual Azul Right eye Left eye Full Full Extraocular Movement Right eye Left eye Full, Ortho Full, Ortho Neuro/Psych Oriented x3: Yes Mood/Affect: Normal Dilation Both eyes: 1.0% Mydriacyl, 2 .5% Phenylephrine @ 12:01 AM External Exam Right eye Left eye External Mild redness on the eyelids Slit Lamp Exam Right eye Left eye Lids/Lashes Mild redness on the eyelids Norm al Conjunctiva/Sclera 1+ injection White and jovanny et Cornea 4x2mm central abrasion, no infil trate Clear Anterior Chamber Deep and quiet Deep and quiet Iris Round and reactive Round and joana ctive Lens Clear Clear Vitreous Normal Normal Fundus Exam Right eye Left eye Disc Normal Normal C/D Ratio 0.3 0.3 Macula Normal Normal Vessels Normal Normal Periphery Inferior retinae commotio, no RD /RT Normal Care Teams Waiter/Waitress Take Out Relationship Specialty Start Date End Date Vic Clay MD [address] [place] [address] PCP - General 01/08/18 documented as of this encounter
[2024-06-20 19:23] VITALS: BP 145/97; PULSE 90; RESP 14; TEMP 36.6; O2SAT 100
--- NOTE | 2024-06-20 19:34 | ECG_ITS ---
Test Date: 2024-06-20 19:36:22 Measurements Intervals [place] Rate: 90 P: 14 HI: 123 QRS: 0 QRSD: 94 T: 30 QT: 353 QTc: 434 Interpretive Statements SINUS RHYTHM INCOMPLETE RIGHT BUNDLE BRANCH BLOCK DELAYED PRECORDIAL R/S TRANSITION BASELINE ARTIFACT- I, II, III, AVR, AVL, AVF, V1-V2 BORDERLINE ECG No previous ECG available for comparison Electronically Signed On 06-20-2024 19:55:46 CDT by Jean Carlos Romano D.O.
[2024-06-20 21:22] VITALS: PULSE 81; O2SAT 99
--- NOTE | 2024-06-20 21:23 | ED_ITS ---
HPI - Chest Pain General Chief Complaint: Chest Pain Stated Complaint: random sweating?, sob,cp Time Seen by Provider: 06/20/24 21:21 Source: patient Mode of arrival: ambulatory Limitations: no limitations History of Present Illness HPI narrative: This is a 39-year-old male who with PMH of anxiety, HTN who presents to the ED for chief complaint of chest pain beginning at around 6:30 a.m. this evening and lasting for about 45 seconds. 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 Reports a tightness across the entire chest that does not radiate to the extremities. Denies associated nausea, vomiting, lightheadedness, syncope. States that he has had a couple of episodes in the past few days of diaphoresis but does not associate this with chest pain. Among this he has other complaints of headache, dry mouth, abdominal pain to the bilateral abdomen, lower leg cramping bilaterally, occasional loose stools. Denies fevers, chills, cough, back pain, numbness, weakness, neck pain. Related Data Allergies Allergy/AdvReac Type Severity Reaction Status Date / Time Penicillins AdvReac Mild Rash Verified 06/20/24 19:30 Review of Systems 2 Review of Systems: All systems as dictated in HPI [facility] Past Medical History Medical History Anxiety Essential (primary) hypertension Surgical History Surgical History History of tonsillectomy Family History Family History Father No problems noted. Mother No problems noted. Social History Social History Smoking packs per day: 1 Smoking cigarettes per day: 20.0 Years smoked: 18 Smoking pack-years: 18.00 Smoking status: Former smoker Tobacco type: cigarettes Smoking end date: 07/07/21 Alcohol intake: current Substance use: never Substance use type: does not use Do You Feel Safe in your Home?: Yes Lack of Transportation: No Lack of Food: Never True Current Housing: I Have Housing Concerned About Future Housing: No Difficulty Paying Gas/Electric Bills: No Difficulty Paying for Meds: No Currently Unemployed: No Education: High School Diploma/GED Difficulty w/ Childcare or Family Care: No Living arrangements: with family Occupation/Education: occupation Gender identity (if verbalized by the patient): Male Sexual Orientation (if Verbalized by the Patient): Straight or Heterosexual Spiritual care concerns: No Exam 2 Narrative: GENERAL: Anxious appearing. Does not appear toxic or in pain. HEAD: Normocephalic, atraumatic. EYES: PERRLA and EOMI. ENT: Nares clear, no rhinorrhea or epistaxis. Mucous membranes moist. Oropharynx without tonsillar hypertrophy exudate or other lesions. NECK: Supple. No adenopathy or masses. CHEST: No respiratory distress. Clear to auscultation. No wheezes rales or rhonchi HEART: Regular rate and rhythm. No murmur heard. Normal peripheral pulses. ABDOMEN: Soft, nontender, nondistended, normal active bowel sounds. MSK: Normal range of motion. No edema. SKIN: Warm, dry, no rash. NEURO: Alert and oriented x4. No focal deficits. PSYCH: Normal mood and affect. Course Vital Signs Vital signs: Vital Signs Temperature 97.8 F 06/20/24 19:23 Pulse Rate 90 06/20/24 19:23 Respiratory Rate 14 06/20/24 19:23 Blood Pressure 145/97 H 06/20/24 19:23 Pulse Oximetry 100 06/20/24 19:23 Oxygen Delivery Room Air 06/20/24 19:23 Temperature 97.8 F 06/20/24 19:23 Pulse Rate 85 06/21/24 00:18 Respiratory Rate 15 06/21/24 00:18 Blood Pressure 144/94 H 06/21/24 00:18 Pulse Oximetry 96 06/21/24 00:18 Oxygen Delivery Room Air 06/20/24 21:22 MDM - Chest Pain MDM Narrative Medical decision making narrative: This is a 39-year-old male who presents to the ED for chief complaint of chest pain among multiple other complaints. Vitals are normal. Exam unremarkable other than patient appearing very anxious. Lab work and imaging to show evidence of ACS today. 0 and 3 hour troponins are negative. Will negative for PE. Chest x-ray negative. He was given Toradol for chest pain and headache as well as fluids and is feeling better on re- evaluation. He is very clearly displaying health-related anxiety throughout the visit and felt reassured by the workup today. Patient will be discharged in stable condition. Supportive measures discussed and return precautions given. Patient is understanding and agreeable with plan for discharge with PCP follow-up. Lab Data 06/20/24 21:46 06/20/24 21:46 Labs: Lab Results 06/20/24 06/20/24 Range/Units 21:46 22:43 WBC 9.5 (4.5-10.0) K/mm3 RBC 5.21 (4.6-6.20) M/mm3 Hgb 14.9 (14.0-18.0) g/dL Hct 44.9 (42.0-52.0) % MCV 86.2 (80-100) fl MCH 28.6 (26-34) pg MCHC 33.2 (32-36) g/dl RDW 12.9 (11.5-14.5) % Plt Count 252 (150-375) k/mm3 MPV 10.8 H (7.4-10.4) fl Immature Gran % (Auto) 0.3 (0-0.5) % Neut % (Auto) 59.6 (45.5-73.1) % Lymph % (Auto) 29.5 (18.3-44.2) % [place] % (Auto) 9.3 H (2.6-8.5) % Eos % (Auto) 0.8 (0-4.4) % Baso % (Auto) 0.5 (0.2-1.2) % Lymph # (Auto) 2.81 (0.9-3.2) K/mm3 [place] # (Auto) 0.9 H (0.1-0.6) K/mm3 Eos # (Auto) 0.1 (0-0.3) K/mm3 Baso # (Auto) 0.1 (0.0-0.1) K/mm3 Abs Immat Gran (auto) 0.03 (0.00-0.031) K/mm3 Absolute Neuts (auto) 5.7 (1.3-6.7) K/mm3 Absolute Nucleated RBC 0.000 (0.0-0.012) K/mm3 Nucleated RBC % 0.0 (0.0-0.2) % PT 13.3 (11.1-14.7) Seconds INR 1.0 APTT 30.9 (22.3-36.8) Seconds Sodium 141 (137-145) mmol/L Potassium 4.0 (3.4-5.0) mmol/L Chloride 103 (98-107) mmol/L Carbon Dioxide 27 (22-30) mmol/L Anion Gap 11 (4-12) mmol/L BUN 17 (9-20) mg/dL Creatinine 0.89 (0.7-1.3) mg/dL Estim Creat Clear Calc 94 ml/min Estimated GFR > 60 (59 - ) Glucose 105 (65-110) mg/dL Calcium 9.1 (8.4-10.2) mg/dL Total Bilirubin 0.4 (0.2-1.3) mg/dL AST 32 (17-59) U/L ALT 29 (6-50) U/L Alkaline Phosphatase 76 (38-126) U/L Troponin I < 0.012 < 0.012 (0.000-0.034) ng/mL Total Protein 8.0 (6.3-8.2) g/dL Albumin 4.8 (3.5-5.1) g/dL Lipase 125 (23-300) U/L Discharge Plan Discharge Clinical Impression: Atypical chest pain Patient Disposition: Home Condition: Stable Instructions: Antibiotic Form Additional Instructions: Your exam and imaging today are reassuring. No evidence of cardiac cause of chest pain today. Please follow-up closely with your PCP on this issue. Take Tylenol and ibuprofen every 6 hours as needed for pain as it is most likely more musculoskeletal. It could also be due to stress or anxiety. If you have any new or worsening symptoms please return to the ER for further evaluation. Patient Language: Welsh Prescriptions: No Action metoprolol succinate 100 mg tablet extended release 24 hr 100 mg PO DAILY Qty: 90 1RF Follow-up/Referrals: Vic Clay MD [Primary Care Provider] - Time of Disposition: 23:23
[2024-06-20 21:24] VITALS: BP 186/107; PULSE 85; RESP 14; O2SAT 100
--- OUTSIDE RECORDS SUMMARY | 2024-06-20 21:27 | XMS_ITS | Clinical Summary ---
Author Organization [facility] Address [address] Attn: Epic Prelude ADT SHARYN WEBB [address] Care Team Providers Care Ship Boat Or Barge Mate Name Role Phone Unavailable Primary Care Provider Unavailabl e Social History Tobacco Use Types Packs/Day Years Used Date Smoking Tobacco: Never Assessed Sex and Gender Information Value Date Recorded Sex Assigned at Not on file Legal Sex Male 5:24 AM VENEER CUTTER Gender Identity Not on file Sexual Orientation [...]
--- OUTSIDE RECORDS SUMMARY | 2024-06-20 21:27 | XMS_ITS | Encounter Summary ---
Author Organization [facility] Address [address] [facility] [address] [place] [address] Phone Care Team Providers Care Stereo Map Plotter Operator Name Role Phone Vic Clay MD Primary Care Provider [phone] Encounter Details Date Type Department Care Team (Late st Contact Info) Description 01/09/2018 Ophth Exam [facility] Ophthalmology [address] [place] [address] 1st [place] [id number] Nesha Thomas MD PhD [address] [facility] [address] [place], [place] [id number] Social History Tobacco Use Types Packs/Day Years Used Date Smoking Tobacco: Every Day Smokeless Tobacco: Never Sex and Gender Information Value Date Recorded Sex Assigned at Not on file Legal Sex Male 2:02 AM DIRECTOR REPORT Gender Identity Not on file Sexual Orientation [...] commotio, no RD /RT Normal Care Teams Stereo Map Plotter Operator Relationship Specialty Start Date End Date Vic Clay MD [address] [place] [address] PCP - General 01/08/18 documented as of this encounter
--- OUTSIDE RECORDS SUMMARY | 2024-06-20 21:27 | XMS_ITS | Encounter Summary ---
Author Organization [facility] Address 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
--- OUTSIDE RECORDS SUMMARY | 2024-06-20 21:27 | XMS_ITS | Referral Summary ---
Author Organization [facility] al Address [address] [place] [address] Care Team Providers Care Store Operations Specialist Name Role Phone Vic Clay MD Primary Care Provider [phone] Allergies Active Allergy Reactions Criticality Noted Date [...] Inferior Assessment & Plan (01/25/2018 10:28 AM ORDER ENTRY): Resolved. - Strict return precaution reviewed - Follow up if worsening vision or concerning symptoms. Abrasion of right cornea 01/10/2018 Assessment & Plan (01/25/2018 10:29 AM ORDER ENTRY): Completely healed. Still had blurry vision, BCVA 20/20 on today's refraction. - Reassured the patient - Recommend artificial tears, qid, OD, prn - Follow up as needed Assessment & Plan (01/12/2018 10:51 AM ORDER ENTRY): Appears healed, no e/o infection or scarring C/w polytrim TID for 1 week course, emycin grant PRN discomfort Can d/c cyclogyl as quiet today F/u 1 week for dilated exam to f/u commotio, sooner if any pain/decreased vision Assessment & Plan (01/10/2018 8:03 AM ORDER ENTRY): Good healing process, no infiltrate - Con't polytrim gtt, OD, TID - Con't Erythromycin grant, OD, TID - Con't cyclogyl 1%, 2-3 times/d, OD - AT, OD, qid, prn - Return precautions reviewed - RTC on 01/13 to reassess. Iritis, traumatic 01/10/2018 Assessment & Plan (01/25/2018 10:24 AM ORDER ENTRY): Resolved. Assessment & Plan (01/10/2018 8:04 AM ORDER ENTRY): Feeling better about pain and photophobia - Con't cyclogyl 1%, 2-3 times/d, OD Social History Tobacco Use Types Packs/Day Years Used Date Smoking Tobacco: Every Day Smokeless Tobacco: Never Personal Safety Answer Date Recorded Getting School Help Needed Not on file 05/21 Sex and Gender Information Value Date Recorded Sex Assigned at Not on file Legal Sex Male 2:02 AM ORDER ENTRY Gender Identity Not on file Sexual Orientation [...] Plan of Treatment Not on file Insurance [facility] CHOICE PLUS WORKERS COMPENSATION GENERIC FLAKITA GREEN [id number] Care Teams Store Operations Specialist Relationship Specialty Start Date End Date Vic Clay MD [address] [place] [address] FLAK[place] FU [id number] PCP - General 01/08/18
--- OUTSIDE RECORDS SUMMARY | 2024-06-20 21:27 | XMS_ITS | Clinical Summary ---
Author Organization [facility] al Address [address] [place] [address] Care Team Providers Care Varsity Baseball Coach Name Role Phone Vic Clay MD Primary Care Provider [phone] Allergies Active Allergy Reactions Criticality Noted Date [...] Inferior Assessment & Plan (01/25/2018 10:28 AM HOT MILL OBSERVER): Resolved. - Strict return precaution reviewed - Follow up if worsening vision or concerning symptoms. Abrasion of right cornea 01/10/2018 Assessment & Plan (01/25/2018 10:29 AM HOT MILL OBSERVER): Completely healed. Still had blurry vision, BCVA 20/20 on today's refraction. - Reassured the patient - Recommend artificial tears, qid, OD, prn - Follow up as needed Assessment & Plan (01/12/2018 10:51 AM HOT MILL OBSERVER): Appears healed, no e/o infection or scarring C/w polytrim TID for 1 week course, emycin grant PRN discomfort Can d/c cyclogyl as quiet today F/u 1 week for dilated exam to f/u commotio, sooner if any pain/decreased vision Assessment & Plan (01/10/2018 8:03 AM HOT MILL OBSERVER): Good healing process, no infiltrate - Con't polytrim gtt, OD, TID - Con't Erythromycin grant, OD, TID - Con't cyclogyl 1%, 2-3 times/d, OD - AT, OD, qid, prn - Return precautions reviewed - RTC on 01/13 to reassess. Iritis, traumatic 01/10/2018 Assessment & Plan (01/25/2018 10:24 AM HOT MILL OBSERVER): Resolved. Assessment & Plan (01/10/2018 8:04 AM HOT MILL OBSERVER): Feeling better about pain and photophobia - Con't cyclogyl 1%, 2-3 times/d, OD Social History Tobacco Use Types Packs/Day Years Used Date Smoking Tobacco: Every Day Smokeless Tobacco: Never Personal Safety Answer Date Recorded Getting School Help Needed Not on file 05/21 Sex and Gender Information Value Date Recorded Sex Assigned at Not on file Legal Sex Male 2:02 AM HOT MILL OBSERVER Gender Identity Not on file Sexual Orientation [...] Plan of Treatment Not on file Insurance [facility] [place] [address] WORKERS COMPENSATION GENERIC Care Teams Varsity Baseball Coach Relationship Specialty Start Date End Date Vic Clay MD [address] [place] [address] [place] FU [id number] PCP - General 01/08/18
--- OUTSIDE RECORDS SUMMARY | 2024-06-20 21:27 | XMS_ITS | Clinical Summary ---
Author Organization [facility] Address [address] [place] [address] Care Team Providers Care Carbonation Equipment Operator Name Role Phone Vic Clay MD Primary Care Provider [phone] Allergies Active Allergy Reactions Criticality Noted Date [...] patient's age to complete this topic Insurance [facility] Care Teams Carbonation Equipment Operator Relationship Specialty Start Date End Date Vic Clay MD [address] [place] [id number] PCP - General FAMILY PRACTICE 06/30/21
[2024-06-20] MEDS: KETOROLAC 30 MG/ML VIAL (*BKC) IV PUSH (21:50)
[2024-06-20] MEDS: SODIUM CHLORIDE 0.9% IV 1,000 ML 999 ML IV CONT (21:51)
[2024-06-20 21:52] LABS: Basophils Absolute Auto 0.1 K/mm3 (0.0-0.1); Basophils Percent Auto 0.5 % (0.2-1.2); Eosinophils Absolute Auto 0.1 K/mm3 (0-0.3); Eosinophils Percent Auto 0.8 % (0-4.4); Hematocrit 44.9 % (42.0-52.0); Hemoglobin 14.9 g/dL (14.0-18.0); Immature Granulocyte Absolute 0.03 K/mm3 (0.00-0.031); Immature Granulocyte Percent A 0.3 % (0-0.5); Lymphocytes Absolute Auto 2.81 K/mm3 (0.9-3.2); Lymphocytes Percent Auto 29.5 % (18.3-44.2); Mean Corpuscular HGB Conc 33.2 g/dl (32-36); Mean Corpuscular Hemoglobin 28.6 pg (26-34); Mean Corpuscular Volume 86.2 fl (80-100); Mean Platelet Volume 10.8 fl (7.4-10.4); Monocytes Absolute Auto 0.9 K/mm3 (0.1-0.6); Monocytes Percent Auto 9.3 % (2.6-8.5); Neutrophils Absolute Auto 5.7 K/mm3 (1.3-6.7); Neutrophils Percent Auto 59.6 % (45.5-73.1); Platelet Count Result 252 k/mm3 (150-375); Red Blood Count 5.21 M/mm3 (4.6-6.20); Red Cell Distribution Width 12.9 % (11.5-14.5); White Blood Count 9.5 K/mm3 (4.5-10.0)
[2024-06-20 22:03] LABS: Alanine Aminotransferase 29 U/L (6-50); Albumin Level 4.8 g/dL (3.5-5.1); Alkaline Phosphatase 76 U/L (38-126); Anion Gap 11 mmol/L (4-12); Aspartate Amino Transferase 32 U/L (17-59); Bilirubin,Total 0.4 mg/dL (0.2-1.3); Blood Urea Nitrogen 17 mg/dL (9-20); Calcium 9.1 mg/dL (8.4-10.2); Carbon Dioxide 27 mmol/L (22-30); Chloride 103 mmol/L (98-107); Estimated CRCL calculation 94 ml/min; Estimated Glomerular Filt Rate > 60; Glucose 105 mg/dL (65-110); Lipase 125 U/L (23-300); Sodium 141 mmol/L (137-145)
[2024-06-20 22:04] LABS: Prothrombin Time 13.3 Seconds (11.1-14.7)
[2024-06-20 22:05] LABS: Partial Thromboplastin Time 30.9 Seconds (22.3-36.8)
[2024-06-20 22:14] LABS: Troponin I < 0.012 ng/mL (0.000-0.034)
[2024-06-20 23:12] LABS: Troponin I < 0.012 ng/mL (0.000-0.034)
[2024-06-20 23:33] VITALS: BP 144/94; PULSE 78; RESP 20; O2SAT 96
[2024-06-21 00:18] VITALS: BP 144/94; PULSE 85; RESP 15; O2SAT 96
== END 2024-06-21 00:19 | disposition home or self-care (01) ==
PROVIDERS: Student in an Organized Health Care Education/Training Program; Emergency Provider Physician Assistant; PCP Family Medicine
DX: R07.89 Other chest pain (principal); I10 Essential (primary) hypertension; F41.9 Anxiety disorder, unspecified; Z87.891 Personal history of nicotine dependence; I45.10 Unspecified right bundle-branch block
CPT/HCPCS: 36415; 80053; 83690; 84484; 85025; 85610; 85730; 93005; 96361; 96374; 99284; J1885; J7030